=== PATIENT | male | born 1960 | race Caucasian/White ===

== ENCOUNTER 2017-12-12 23:39 | Inpatient (IN) | payer OTHER ==
[~2017-12-12] VITALS: Ht 172.7 cm; Wt 105.2 kg
--- NOTE | ~2017-12-12 | HC ---
[facility] [place] [address] CONSULTATION Name: DEMETRA URBINA Room #: 357-P [facility] IN .R.#: [id number] Admission: 12/13/17 Attend Phys: Mckay Craig MD Discharge: Date of : 62 Report #: [id number] THIS REPORT FOR: //name// CC: Mckay Griggs DATE OF SERVICE: 12/13/2017 HISTORY OF PRESENT ILLNESS: The patient is a 57-year-old male with a history of CLL who has been currently undergoing therapy by his oncologist, Dr. Negro, over the last year with IV chemotherapy. REASON FOR HOSPITALIZATION: Fevers and chills. The patient has been through two rounds of antibiotics recently orally, last one being Levaquin for the possibility of a sinusitis. He has been having some sinus pain and drainage. He denies any blood in his sinus drainage. Reason for GI consultation is elevated liver function test, specifically the AST and ALT. No previous history of liver disease. The patient quit drinking alcohol 36 years ago. He denies any significant abdominal pain other than a mild tenderness in his right mid abdomen. His bowel movements have been fairly normal recently. He did have an episode of diarrhea on Friday, took one Imodium. He has not had a bowel movement since that time. No previous history of C. difficile. He did have one episode of nausea and vomiting yesterday, none today, tolerated his diet without any problems. He denies any chest pain. He denies any cough or sputum production. He has been afebrile this morning. He has had a previous cholecystectomy years ago. He underwent an ultrasound of the abdomen today showing previous cholecystectomy changes, common bile duct 6.7 mm in diameter. Liver is 18 cm. Echogenicity was increased suggesting fatty infiltration. Blood flow was normal. No other abnormalities were seen. He was exposed to poison milena recently and was treated with 2 rounds of steroids as well. He does take Bactrim as well as acyclovir. He has been on this medicine, however, for at least a year. Denies any significant Tylenol use. PAST MEDICAL HISTORY: CLL, previous laparoscopic cholecystectomy, previous hernia repair, basal cell cancer of the face, status post resection, history of MRSA cellulitis, possible recent sinusitis. MEDICATIONS: At home, Bactrim, Zovirax, Wellbutrin, Medrol Dosepak. REVIEW OF SYSTEMS: As per HPI. FAMILY HISTORY: Negative for colon cancer. [address] [address] CONSULTATION Name: DEMETRA URBINA Room #: 357-P [facility] IN ..#: [id number] Admission: 12/13/17 Attend Phys: Mckay Craig MD Discharge: Date of : 62 Report #: [id number] ALLERGIES: BENADRYL. SOCIAL HISTORY: Denies any tobacco use. Again, last alcohol use was 36 years ago. PHYSICAL EXAMINATION: VITAL SIGNS: Temperature is 98.6, pulse 84, blood pressure 103/59, respiratory rate is 18. GENERAL: He is alert and oriented x 3, in no acute distress. HEENT: Sclerae nonicteric. Oropharynx clear. NECK: Supple, without lymphadenopathy. CARDIOVASCULAR: Regular rate and rhythm. CHEST: Clear to auscultation bilaterally. ABDOMEN: Soft, minimally tender in the right mid abdomen, nondistended, normoactive bowel sounds. EXTREMITIES: No cyanosis, clubbing or edema. LABORATORY DATA: Sodium 135, potassium 3.7, chloride 97, bicarbonate 29, BUN 13, creatinine 1.2, glucose 110, AST is 460. I have no other values to compare. Lipase 130, total bilirubin 0.6, alkaline phosphatase 114, ALT is 563, total protein 6.6 and albumin 3.6, lactic acid level 1.3. WBC is 4.4, hemoglobin 13.1, MCV 91.7, platelet count is 88,000. He has 33 bands, 17 lymphocytes. Viral hepatitis panel is pending at this time. UA is all normal. ASSESSMENT AND PLAN: 1. Elevated liver function test, specifically the AST and ALT. Etiology is unclear at this point. The patient has no previous history of liver disease. Ultrasound showing fatty liver changes which could cause elevation in liver function test; however, the patient has reportedly had normal liver function test in the recent past. He is on no new medications. He is on IV chemotherapy. Agree with Oncology consultation, which is pending at this time. The patient was admitted for fever, etiology is unknown at this point. He has been on recent antibiotics, which could cause elevation in his liver function test, but he has been through two rounds of antibiotics at this time. Viral hepatitis panel is pending. His common bile duct is normal in size. He has had a previous laparoscopic cholecystectomy. He is having no significant GI symptoms at this time other than one episode of diarrhea on Friday, but none since. If diarrhea recurs, could send off for stool studies. We will also proceed with autoimmune markers for further evaluation of elevated liver function test. He has no history of significant Tylenol. He has no history of alcohol use. We will continue to monitor his liver function tests. [address] [address] CONSULTATION Name: DEMETRA URBINA Room #: 357-P [facility] IN M.R.#: [id number] Admission: 12/13/17 Attend Phys: Mckay Craig MD Discharge: Date of : 62 Report #: [id number] Thank you for allowing me to participate in his care. <ELECTRONICALLY SIGNED> By: Blas Long MD 12/14/17 [id number] Blas Long MD /nt
[2017-12-12 23:42] VITALS: BP 128/79
[2017-12-13] MEDS ORDERED: BACTRIM DS TAB1 EACH PO (00:53)
[2017-12-13 00:54] LABS: HEMATOCRIT 37.2 % (42.0-52.0); HEMOGLOBIN 13.1 gm/dL (14.0-18.0); MCH 32.4 pg (26.0-34.0); MCHC 35.3 g/dL (28.0-37.0); MCV 91.7 fL (80.0-100.0); PLATELET COUNT 88 thou/uL (150-400); RBC 4.05 mil/uL (4.50-6.00); RDW 14.7 % (10.5-14.5); WBC 4.4 thou/uL (4.0-11.0)
[2017-12-13] MEDS ORDERED: WELLBUTRIN SR150 MG PO (00:54)
[2017-12-13] MEDS ORDERED: ACYCLOVIR 400400 MG PO (00:54)
[2017-12-13 00:55] LABS: CREATININE 1.2 mg/dL (0.7-1.3); POTASSIUM 3.7 mmol/L (3.5-5.1)
[2017-12-13] MEDS ORDERED: MEDROLDOSEPACK PO (00:56)
[2017-12-13 01:00] LABS: ALBUMIN 3.6 g/dL (3.4-5.0); DIRECT BILIRUBIN 0.1 mg/dL (<0.1-0.3); TOTAL BILIRUBIN 0.6 mg/dL (<0.1-1.0); TOTAL PROTEIN 6.6 g/dL (6.4-8.2)
[2017-12-13 01:17] LABS: ABSOLUTE NEUTROPHILS 3.6 thou/uL (1.4-8.2); ANISOCYTOSIS SLIGHT; POLYCHROMASIA SLIGHT; TOXIC GRANULATION 1+
[2017-12-13 03:29] VITALS: BP 113/91
[2017-12-13 03:30] LABS: URINE BILIRUBIN NEGATIVE (Negative); URINE BLOOD NEGATIVE (Negative); URINE CLARITY CLEAR; URINE COLOR YELLOW; URINE GLUCOSE-RANDOM* NEGATIVE (Negative); URINE KETONES NEGATIVE (Negative); URINE LEUKOCYTES-REFLEX NEGATIVE (Negative); URINE NITRITE-REFLEX NEGATIVE (Negative); URINE PROTEIN (DIPSTICK) NEGATIVE (Negative); URINE SPECIFIC GRAVITY >= 1.030 (1.005-1.035); URINE UROBILINOGEN 0.2 E.U./dl (0.2-1.0)
[2017-12-13 03:40] VITALS: BP 113/91
[2017-12-13 05:04] VITALS: BP 94/54
[2017-12-13 07:35] VITALS: BP 105/59
[2017-12-13 12:43] VITALS: BP 103/59
[2017-12-13 19:50] VITALS: BP 124/80
[2017-12-13 20:17] LABS: CALCIUM 8.1 mg/dL (8.5-10.1); CREATININE 1.1 mg/dL (0.7-1.3); POTASSIUM 3.3 mmol/L (3.5-5.1); TOTAL BILIRUBIN 0.6 mg/dL (<0.1-1.0); TOTAL PROTEIN 5.8 g/dL (6.4-8.2)
[2017-12-14 04:22] VITALS: BP 119/67
[2017-12-14 05:16] LABS: HEMATOCRIT 36.3 % (42.0-52.0); HEMOGLOBIN 12.8 gm/dL (14.0-18.0); MCH 32.5 pg (26.0-34.0); MCHC 35.4 g/dL (28.0-37.0); MCV 91.7 fL (80.0-100.0); PLATELET COUNT 65 thou/uL (150-400); RBC 3.96 mil/uL (4.50-6.00); RDW 14.6 % (10.5-14.5); WBC 3.6 thou/uL (4.0-11.0)
[2017-12-14 05:22] LABS: CALCIUM 7.9 mg/dL (8.5-10.1); CREATININE 0.9 mg/dL (0.7-1.3); DIRECT BILIRUBIN 0.1 mg/dL (<0.1-0.3); POTASSIUM 3.4 mmol/L (3.5-5.1); TOTAL BILIRUBIN 0.7 mg/dL (<0.1-1.0); TOTAL PROTEIN 5.6 g/dL (6.4-8.2)
[2017-12-14 05:51] LABS: ABSOLUTE NEUTROPHILS 1.9 thou/uL (1.4-8.2)
[2017-12-14 05:52] LABS: PLATELET ESTIMATE DECREASED
[2017-12-14 07:48] VITALS: BP 116/76
[2017-12-14 13:13] VITALS: BP 116/67
[2017-12-14 15:43] VITALS: BP 124/79
[2017-12-14 19:21] VITALS: BP 118/80
[2017-12-15 01:39] VITALS: BP 118/80
[2017-12-15 08:06] VITALS: BP 122/67
[2017-12-15 08:29] LABS: HEMATOCRIT 38.1 % (42.0-52.0); HEMOGLOBIN 12.9 gm/dL (14.0-18.0); MCH 31.3 pg (26.0-34.0); MCHC 33.8 g/dL (28.0-37.0); MCV 92.5 fL (80.0-100.0); RBC 4.11 mil/uL (4.50-6.00); RDW 15.2 % (10.5-14.5); WBC 4.2 thou/uL (4.0-11.0)
[2017-12-15 08:40] LABS: CALCIUM 8.4 mg/dL (8.5-10.1); CREATININE 0.9 mg/dL (0.7-1.3); POTASSIUM 3.7 mmol/L (3.5-5.1); TOTAL BILIRUBIN 0.4 mg/dL (<0.1-1.0); TOTAL PROTEIN 5.8 g/dL (6.4-8.2)
[2017-12-15 09:20] VITALS: BP 122/67
[2017-12-15 13:07] LABS: CERULOPLASMIN 21.6 mg/dL (16.0-31.0)
[2017-12-15 16:11] LABS: HAV IgM AB (ANTI-HAV IgM) Negative (Negative); HEPATITIS B SURFACE AG Negative (Negative); HEPATITIS C VIRUS AB <0.1 (0.0-0.9)
[2017-12-16 13:09] LABS: MITOCHONDRIAL ANTIBODY 3.1 Units (0.0-20.0)
[2017-12-17 01:07] LABS: ADENOVIRUS Negative (Negative); INFLUENZA A Negative (Negative); INFLUENZA B Negative (Negative); METAPNEUMOVIRUS Negative (Negative); PARAINFLUENZA 1 Negative (Negative); PARAINFLUENZA 2 Negative (Negative); PARAINFLUENZA 3 Negative (Negative); RHINOVIRUS Negative (Negative); RSV A Negative (Negative); RSV B Negative (Negative)
== END 2017-12-15 10:30 | disposition home or self-care (01) | DRG 871 ==
LOC: ER 23:39 → 3W 12-13 02:54 → EROBS 12-13 02:54 → 3W 12-13 03:43
PROVIDERS: Emergency Medicine; Hospitalist; Internal Medicine Hematology & Oncology; Nurse Practitioner Family; Specialist
DX: A41.9 Sepsis, unspecified organism (principal); E43 Unspecified severe protein-calorie malnutrition; C91.10 Chronic lymphocytic leukemia of B-cell type not having achieved remission; K75.9 Inflammatory liver disease, unspecified; D69.6 Thrombocytopenia, unspecified; R74.0 Nonspecific elevation of levels of transaminase and lactic acid dehydrogenase [LDH]; T38.0X5A Adverse effect of glucocorticoids and synthetic analogues, initial encounter; Z88.8 Allergy status to other drugs, medicaments and biological substances; E87.6 Hypokalemia; Z79.899 Other long term (current) drug therapy; Z90.49 Acquired absence of other specified parts of digestive tract; Z86.14 Personal history of Methicillin resistant Staphylococcus aureus infection; Z92.21 Personal history of antineoplastic chemotherapy
CPT/HCPCS: 10779